=== PATIENT | female | born 1995 | race Caucasian/White ===

== ENCOUNTER 2021-05-25 10:22 | Emergency (ER) | payer BC, SELFPAY ==
[2021-05-25 10:24] VITALS: BP 112/72; PULSE 73; RESP 17; TEMP 36; O2SAT 98; BMI 24.7
--- NOTE | 2021-05-25 10:52 | CT_ITS ---
STUDY: CT BRAIN WITHOUT CONTRAST REASON FOR EXAM: Female, 25 years old. Headaches. RADIATION DOSAGE (If Supplied By Facility): CTDIvol = ( 44.99 ) mGy, DLP = ( 745.49 ) mGycm TECHNIQUE: Transaxial CT imaging of the brain was performed without administration of intravenous contrast material. Individualized dose optimization techniques were used for this CT. COMPARISON: No relevant priors. FINDINGS: Normal soft tissue structures. Normal calvarium. Normal size ventricles and extra-axial spaces for the patient''s age. Normal white matter tracts of the cerebral hemispheres. Normal basal ganglia and thalami. Normal brainstem. Normal cerebellum. There is no intracranial hemorrhage. There are no findings of an acute ischemic infarction. Normal visualized paranasal sinuses. CT/Brain/Head without Contrast IMPRESSION: Normal unenhanced CT scan of the brain. Electronically Signed: Nelson Herbert MD at 11:32 EST ,
--- NOTE | 2021-05-25 10:54 | EX.ED.VIS.HA ---
HPI History of Present Illness Chief Complaint: Headache Narrative Narrative: 25-year-old female presenting with headache. She states that this started yesterday. She states she does not have a history of diagnosed migraines but does state that she believes she has migraines. She has never had to go to a physician for her headache before. Patient reports nausea, photophobia, phonophobia, the association of pressure behind her eyes. She denies a acute onset headache. He does not have dizziness or lightheadedness. No visual complaints. No fever, chills, neck pain. No history of trauma. Patient states she is not concerned for . PFSH PFSH Medical History no medical history Home Medications NK 05/25/21 [History Last Taken Unknown] Allergy/AdvReac Type Severity Reaction Status Date / Time ciprofloxacin [From Cipro] AdvReac Nausea Verified 05/25/21 10:24 Surgical History no surgical history Social History Smoking Status: Never smoker ROS ROS ED Constitutional Constitutional ED: Denies chills, fever(s) or subjective Eyes Eyes: Reports other Details: Photophobia ; Denies blurry vision or diplopia ENT ENT ED: Reports other Details: Phonophobia ; Denies rhinorrhea or sore throat Cardiovascular Cardiovascular: Denies chest pain or palpitations Respiratory/Chest Respiratory/Chest: Denies cough or dyspnea Gastrointestinal Gastrointestinal: Reports nausea; Denies abdominal pain, diarrhea or vomiting Genitourinary Genitourinary ED: Denies dysuria or hematuria Musculoskeletal Musculoskeletal: Denies arthralgias or myalgias Integumentary Denies Abrasions or rash Neurologic Neurologic: Reports headache(s); Denies paresthesias or weakness EXAM Physical Exam Const Vital Signs: 05/25/21 10:24 05/25/21 12:24 Temperature 96.8 F L Temperature Source Temporal Pulse Rate 73 60 Respiratory Rate 17 16 Blood Pressure 112/72 98/57 L Blood Pressure Mean 85 70 Pulse Ox 98 97 Oxygen Delivery Method Room Air Room Air Positive well nourished General Appearance ED: NAD; Negative for pallor HEENT Reports normocephalic, TM's clear and moist mucous membranes atraumatic Tympanic Membrane ED: Yes TM's clear Eyes PERRL and EOMs intact bilaterally Neck no lymphadenopathy, supple and no meningeal signs Resp normal respiratory effort and clear to auscultation bilaterally Cardio regular rate and regular rhythm Neuro oriented x3, CN's II-XII intact bilaterally and no sensory deficits noted Sensorium / Orientation: awake and alert Speech: speech normal Gait (Neuro): normal gait Motor Exam: strength 5/5 throughout Psych mental status grossly normal Skin General Skin Exam: Negative for jaundice or pallor Lesions: no lesions Rashes: no rashes MDM MDM MDM Narrative Medical decision making narrative: Patient presenting with symptoms of migraine. Her neurologic exam is normal. Patient was given Reglan, Benadryl and a CT of the head was obtained because she is not had any imaging nor has she had a headache this bad before. CT of the brain is normal. Patient was given Toradol after this and on reevaluation at 1230 she is pain-free and wants to be discharged home. I counseled her to follow-up with her primary care provider on outpatient basis. She can return precautions. Impression: 1. Headache Radiography Diagnostic Testing: Clinical Impression(s) from Imaging Studies Brain CT 05/25/21 10:52 IMPRESSION: Normal unenhanced CT scan of the brain. Electronically Signed: Nelson Herbert MD at 11:32 EST , Discharge Plan Triage Chief Complaint: Headache ED Provider: Sergio Mayfield Dx/Rx/DC Orders Instructions: ED Headache Unspecified Prescriptions: No Action NK RF: 0 Primary Care Provider: Care Physician,No Primary Referrals: Care Physician,No Primary [Primary Care Provider] - Disposition Disposition: Home, Self Care
[2021-05-25] MEDS: DiphenhydrAMINE 50 MG/ML Syringe 25 MG IV (11:09)
[2021-05-25] MEDS: Metoclopramide 10 MG/2 ML Vial IV (11:09)
[2021-05-25] MEDS: Ketorolac 15 MG/ML Vial IV (11:52)
[2021-05-25 12:24] VITALS: BP 98/57; PULSE 60; RESP 16; O2SAT 97
== END 2021-05-25 12:53 | disposition home or self-care (01) ==
PROVIDERS: Emergency Provider Student in an Organized Health Care Education/Training Program; Visit Provider Student in an Organized Health Care Education/Training Program
DX: R51.9 Headache, unspecified (principal)
CPT/HCPCS: 70450; 96361; 96374; 96375; 99284; J7040; A4216

== ENCOUNTER 2023-04-14 02:56 | Emergency (ER) | payer OTHER, SELFPAY ==
[2023-04-14 02:57] VITALS: BP 114/66; PULSE 112; RESP 17; TEMP 36.8; O2SAT 99; BMI 25.7
--- OUTSIDE RECORDS SUMMARY | 2023-04-14 03:28 | XMS RPT_ITS | CCD ---
Author Name Unknown Address [address] [place] [address] Organization [facility] Care Team Providers Care Fiberglass Quality Technician Name Role Phone PHYSICIAN, NONE Primary Care Physician Unavailab DIEGO Joshi MD Attending Unavailable PHYSICIAN, NONE Primary Care Unavailable JENNIFER FOLEY Referring Unavailable CONCHA BALDWIN Primary Care Unavailable LILY DIAMOND Admitting Unavailable Presley Harris Unavailable Panda DIRECTOR IT.Concha ZAMORA Primary Care Provider CONCHA BALDWIN Primary Care Unavailable JAKE FOY Attending Unavailable FRIEDA GAMING Referring Unavailable CONCHA BALDWIN Primary Care Unavailable Allergies Allergy Classification Reported Allergen(s) Allergy Type Date of Onset Reaction(s) Facility (7 sources) Ciprofloxacin; Translations: [CIPROFLOXACIN] Drug Allergy 02-05-2016 Vomiting [facility] Other [facility] Medications Current Medications Medication Drug Class(es) Dates Sig (Normalized) Sig (Original) naproxen 500 mg oral tablet (3 sources) Nonsteroidal Anti-inflammatory Drug Start: 12-02-2022 End: 12-16-2022 take 1 tablet by mouth every twelve hours as needed naproxen (NAPROSYN) 500 mg tablet Take 1 tablet by mouth twice daily as needed for pain for up to 14 days. Take with food. 28 tablet 0 12/02/2022 12/16/2022 Active Completed/Discontinued Medications Medication Drug Class(es) Dates Sig (Normalized) Sig (Original) omeprazole 20 mg delayed release oral capsule (4 sources) Proton Pump Inhibitor Start: 06-16-2019 take 1 capsule by mouth once daily omeprazole (PRILOSEC) 20 mg capsule Indications: Right-sided chest pain Take 1 capsule by mouth once daily. 30 capsule 2 06/16/2019 Active Problems Problem Classification Problem Date Documented Da te Episodic/Chronic Abdominal pain (2 sources) Right lower quadrant pain; Translations: [Right lower quadrant pain] Onset: 12-02-2022 12-20-2022 Episodic Other screening for suspected conditions (not mental disorders or infectious disease) (1 source) Cancer cervix screening status; Translations: [Encounter for screening for malignant neoplasm of cervix] 12-20-2022 Episodic Ovarian cyst (1 source) Unspecified ovarian cyst, right side; Translations: [Cyst of right ovary] Onset: 12-02-2022 Episodic Results Test Name Value Interpretation Reference Range Facil ity Vital Signs Date Time Vital Sign Value Performing Clinician Faci lity 12-20-2022 10:20-0400 Body weight 63.59 kg aJke Foy MD Work Phone: [facility] 12-20-2022 10:20-0400 Diastolic blood pressure 66 mm[Hg] Jake Foy MD Work Phone: [facility] 12-20-2022 10:20-0400 Systolic blood pressure 118 mm[Hg] Jake Foy MD Work Phone: [facility] Encounters Encounter Date Encounter Type Care Provider Facility Start: 12-20-2022 End: 12-20-2022 ambulatory JAKE FOY Facility:[facility] Start: 12-20-2022 End: 12-20-2022 Patient encounter procedure Jake Foy MD Work Phone: Obstetrics/Gynecology Procedures Date Procedure Procedure Detail Performing Clinician Oral contraceptive prescribed Oral contraceptive prescribed Tyrone Rodrigez MD Work Phone: Structure of wisdom tooth (body structure) DIEGO RAHMAN MD Plan of Treatment Date Care Activity Detail Author Start: 12-13-2022 Influenza vaccination INFLUENZA (#1) [facility] Start: 04-14-2022 DEPRESSION ASSESSMENT DEPRESSION ASS ESSMENT [facility] Start: 08-17-2021 PAP TESTING PAP TESTING [facility] Start: 01-09-2021 Urine microalbumin profile DTAP,TDAP,TD (7 - Td or Tdap) [facility] Start: 2014 HEPATITIS C SCREENING HEPATITIS C SC REENING [facility] Start: 2014 HIV SCREENING HIV SCREENING [facility] Start: 2010 PEDS TO ADULT TRANSI TION ANNUAL ASSESSMENT PEDS TO ADULT TRANSITION ANNUAL ASSESSMENT [facility] Start: 2008 PEDS TO ADULT TRANSI TION INITIAL DISCUSSION PEDS TO ADULT TRANSITION INITIAL DISCUSSION [facility] Start: 06-20-1997 COVID-19 VACCINE (#1) COVID-19 VACCI NE (#1) [facility] PAP TEST PAP TEST Lab [facility] Cervical cancer screening Ordered: 12/20/2022 [facility] Work Phone: Immunizations Immunization Date Immunization Notes Care Provider Fa cility 02-02-2015 influenza virus vacc ine, unspecified formulation Tyrone Rodrigez MD Work Phone: [facility] 03-17-2013 influenza virus vacc ine, unspecified formulation Tyrone Rodrigez MD Work Phone: [facility] 07-31-2012 human papilloma viru s vaccine, quadrivalent Tyrone Rodrigez MD Work Phone: [facility] 07-31-2012 varicella virus vaccine Joey Rodrigez MD Work Phone: [facility] 08-27-2011 hepatitis A vaccine, unspecified formulation Tyrone Rodrigez MD Work Phone: [facility] 08-27-2011 hepatitis B vaccine, pediatric or pediatric/adolescent dosage Tyrone Rodrigez MD Work Phone: [facility] 08-27-2011 human papilloma viru s vaccine, quadrivalent Tyrone Rodrigez MD Work Phone: [facility] 01-09-2011 hepatitis A vaccine, unspecified formulation Tyrone Rodrigez MD Work Phone: [facility] 01-09-2011 human papilloma viru s vaccine, quadrivalent Tyrone Rodrigez MD Work Phone: [facility] 01-09-2011 influenza virus vacc ine, unspecified formulation Tyrone Rodrigez MD Work Phone: [facility] 01-09-2011 Meningococcal, MCV4, unspecified conjugate formulation(groups A, C, Y and W-135) Tyrone Rodrigez MD Work Phone: [facility] 01-09-2011 tetanus toxoid, redu lv diphtheria toxoid, and acellular pertussis vaccine, adsorbed Tyrone Rodrigez MD Work Phone: [facility] 03-31-2009 novel influenza-H1N1 -09, all formulations Tyrone Rodrigez MD Work Phone: [facility] 05-20-2002 diphtheria, tetanus toxoids and acellular pertussis vaccine Tyrone Rodrigez MD Work Phone: [facility] 08-20-2001 measles, mumps and rubella virus vaccine Tyrone Rodrigez MD Work Phone: [facility] 08-20-2001 poliovirus vaccine, inactivated Tyrone Rodrigez MD Work Phone: [facility] 04-10-1998 diphtheria, tetanus toxoids and acellular pertussis vaccine Tyrone Rodrigez MD Work Phone: [facility] 01-11-1998 measles, mumps and rubella virus vaccine Tyrone Rodrigez MD Work Phone: [facility] 06-21-1997 diphtheria, tetanus toxoids and acellular pertussis vaccine Tyrone Rodrigez MD Work Phone: [facility] 06-21-1997 hepatitis B vaccine, pediatric or pediatric/adolescent dosage Tyrone Rodrigez MD Work Phone: [facility] 04-26-1997 diphtheria, tetanus toxoids and acellular pertussis vaccine Tyrone Rodrigez MD Work Phone: [facility] 04-26-1997 poliovirus vaccine, inactivated Tyrone Rodrigez MD Work Phone: [facility] 02-22-1997 diphtheria, tetanus toxoids and acellular pertussis vaccine Tyrone Rodrigez MD Work Phone: [facility] 02-22-1997 poliovirus vaccine, inactivated Tyrone Rodrigez MD Work Phone: [facility] 01-19-1997 hepatitis B vaccine, pediatric or pediatric/adolescent dosage Tyrone Rodrigez MD Work Phone: [facility] Payers Date Payer Category Payer Unknown [id number] 2022 Unknown [employer] PPO OOS [id number] 2022-Present [phone] [address] [place] [address] PPO [id number] 2016 Unknown [id number] 1995 Unknown [id number] Social History Date Type Detail Facility Start: 12-19-2021 End: 12-20-2022 Tobacco smoking status Never smoked tobacco (finding) [facility] Sex Assigned At Sex [facility] Start: 12-05-2022 End: 12-20-2022 Alcohol intake Current drinker of alcohol (finding) [facility] Start: 06-16-2019 End: 12-03-2022 History of Social function [facility] Start: 06-16-2019 End: 12-03-2022 Alcohol Use Disorder Identification Test - Consumption [AUDIT-C] [facility] How often to you hav e a drink containing alcohol? Monthly or less [facility] Average Number of Drinks Not on file [facility] Start: 06-16-2019 Alcohol Comment social [facility] Start: 1995 Sex Assigned At Not on file [facility] Start: 12-20-2022 Tobacco use and exposure Smokeless tobacco non-user [facility] Start: 12-20-2022 Tobacco Comment Never smoked; Never used smokeless; Tobacco reviewed with patient 02/02/2015 [facility] Clinical Notes 12-05-2022 to 12-20-2022 Jake Foy MD - 12/20/2022 10:46 AM Kandi Walden MA - 12/06/2022 10:48 AM Tyrone Guaman MD - 12/05/2022 12:57 PM EDT Note Date & Type Note Facility 12-20-2022 Note HNO ID: [id number] Author: Jake Foy MD Service: ? Author Type: Physician Type: Progress Notes Filed: 12/20/2022 11:11 AM Note Text: Valeri Whittaker is a 26 year old female who presents for follow up of her right lower quadrant pain. HPI: She was seen in the ER on 12/02 for RLQP. Unknown etiology, other than possible rupture of an ovarian cyst or mid-ovulation pain. The cyst mentioned US (1.9 cm) would not cause a clinical symptom. OB History No obstetric history on file. Information Management Manager History LMP: 11/14/2022 (Exact Date), Having periods Age at Menarche: Age at First : Age at Menopause: Information Management Manager History Comments: Sexual Activity: Yes; No partner data on record Contraception: No contraception data on record PAST MEDICAL HISTORY Diagnosis Date Acute otitis externa right Acute sinusitis Allergic rhinitis Contusion of face, scalp and neck Contusion of face, scalp and neck, excluding eye(s) Excessive cerumen in ear canal Exercise-induced asthma Infectious mononucleosis Leukocytosis Oral contraceptive prescribed Shoulder pain, right No past surgical history on file. FAMILY HISTORY Problem Relation Age of Onset Asthma Maternal Grandmother Hypertension Maternal Grandmother other (Diabetes mellitus) Maternal Grandmother other (Osteoarthritis) Paternal Grandmother other (Osteoarthritis) Paternal Grandfather other (mentally handicap) Brother half brother other (aspergers) Other half brother other (thyroid issue) Other Depression Mother Heart Father A fib Social History Tobacco Use Smoking status: Never Smokeless tobacco: Never Tobacco comments: Never smoked; Never used smokeless; Tobacco reviewed with patient 02/02/2015 Substance Use Topics Alcohol use: Yes Comment: social Drug use: No Current Outpatient Medications Medication Sig omeprazole (PRILOSEC) 20 mg capsule Take 1 capsule by mouth once daily. No current facility-administered medications for this visit. Allergies As of Date: 12/20/2022 Allergen Noted Reaction CIPROFLOXACIN 02/05/2016 Vomiting Fully Assessed 12/20/2022 REVIEW OF SYSTEMS Abdomen: No bloating, early satiety, indigestion, or increased flatulence. No abdominal pain, nausea, vomiting, diarrhea, or constipation. Bladder: No dysuria, gross hematuria, urinary frequency, urinary urgency, or incontinence. Breast: No breast lumps, nipple d/c, overlying skin changes, redness or skin retraction. Expanded ROS: N/A Allergies and current medication updated:Yes EXAM: BP 118/66 Wt 140 lb 3.2 oz (63.6kg) LMP 11/14/2022 GENERAL: pleasant, female in no apparent distress HEENT: Normocephalic, atraumatic, mucus membranes moist, and no lesions NECK: Supple, full range of motion, no adenopathy, and thyroid normal DERMATOLOGY: Normal, without lesions, non-icteric, and non-hirsute CHEST: Normal inspiratory effort ABDOMEN: soft, non-tender, and no masses PELVIC: external genitalia normal, normal Bartholin's glands, urethra, High Rolls's glands, no vulvar lesions, no cervical lesions, good vaginal support, physiologic discharge present, normal appearing perineal body and perianal region T/V US in office: Normal uterus and ovaries bilaterally, no free pelvic fluid NEURO: alert and oriented x3,exam grossly non-focal EXTREMITIES: normal ASSESSMENT AND PLAN: Encounter Diagnosis ICD-10-CM 1. Cervical cancer screening Z12.4 PAP TEST 2. Right lower quadrant pain R10.31 1- Pt is reassured that there is no package sealer pathology. 2- Pap smear done 3- Declines Control since considering . I have spent 30 minutes with the patient during history taking, exam, review of chart, documentation in the chart, education, counselling and medical decision making. Jake Foy MD [facility] 12-20-2022 History of Presen t illness Narrative Valeri Whittaker is a 26 year old female who presents for follow up of her right lower quadrant pain. HPI: She was seen in the ER on 12/02 for RLQP. Unknown etiology, other than possible rupture of an ovarian cyst or mid-ovulation pain. The cyst mentioned US (1.9 cm) would not cause a clinical symptom. OB History No obstetric history on file. Information Management Manager History LMP: 11/14/2022 (Exact Date), Having periods Age at Menarche: Age at First : Age at Menopause: Information Management Manager History Comments: Sexual Activity: Yes; No partner data on record Contraception: No contraception data on record PAST MEDICAL HISTORY Diagnosis Date Acute otitis externa right Acute sinusitis Allergic rhinitis Contusion of face, scalp and neck Contusion of face, scalp and neck, excluding eye(s) Excessive cerumen in ear canal Exercise-induced asthma Infectious mononucleosis Leukocytosis Oral contraceptive prescribed Shoulder pain, right No past surgical history on file. FAMILY HISTORY Problem Relation Age of Onset Asthma Maternal Grandmother Hypertension Maternal Grandmother other (Diabetes mellitus) Maternal Grandmother other (Osteoarthritis) Paternal Grandmother other (Osteoarthritis) Paternal Grandfather other (mentally handicap) Brother half brother other (aspergers) Other half brother other (thyroid issue) Other Depression Mother Heart Father A fib Social History Tobacco Use Smoking status: Never Smokeless tobacco: Never Tobacco comments: Never smoked; Never used smokeless; Tobacco reviewed with patient 02/02/2015 Substance Use Topics Alcohol use: Yes Comment: social Drug use: No Current Outpatient Medications Medication Sig omeprazole (PRILOSEC) 20 mg capsule Take 1 capsule by mouth once daily. No current facility-administered medications for this visit. Allergies As of Date: 12/20/2022 Allergen Noted Reaction CIPROFLOXACIN 02/05/2016 Vomiting Fully Assessed 12/20/2022 REVIEW OF SYSTEMS Abdomen: No bloating, early satiety, indigestion, or increased flatulence. No abdominal pain, nausea, vomiting, diarrhea, or constipation. Bladder: No dysuria, gross hematuria, urinary frequency, urinary urgency, or incontinence. Breast: No breast lumps, nipple d/c, overlying skin changes, redness or skin retraction. Expanded ROS: N/A Allergies and current medication updated:Yes EXAM: BP 118/66 Wt 140 lb 3.2 oz (63.6kg) LMP 11/14/2022 GENERAL: pleasant, female in no apparent distress HEENT: Normocephalic, atraumatic, mucus membranes moist, and no lesions NECK: Supple, full range of motion, no adenopathy, and thyroid normal DERMATOLOGY: Normal, without lesions, non-icteric, and non-hirsute CHEST: Normal inspiratory effort ABDOMEN: soft, non-tender, and no masses PELVIC: external genitalia normal, normal Bartholin's glands, urethra, High Rolls's glands, no vulvar lesions, no cervical lesions, good vaginal support, physiologic discharge present, normal appearing perineal body and perianal region T/V US in office: Normal uterus and ovaries bilaterally, no free pelvic fluid NEURO: alert and oriented x3,exam grossly non-focal EXTREMITIES: normal ASSESSMENT AND PLAN: Encounter Diagnosis ICD-10-CM 1. Cervical cancer screening Z12.4 PAP TEST 2. Right lower quadrant pain R10.31 1- Pt is reassured that there is no package sealer pathology. 2- Pap smear done 3- Declines Control since considering . I have spent 30 minutes with the patient during history taking, exam, review of chart, documentation in the chart, education, counselling and medical decision making. Jake Foy MD documented in this encounter [facility] 12-06-2022 Note Patient Outreach (AG FAMPLE) DIYA WHITTAKERWKYLE Juárez ([id number]) 1995 F Date Time Provider Department 12/06/22 CONCHA BALDWIN During your visit today, we recorded the following information about you: Kandi Zheng MA 12/06/2022 10:51 AM Signed ED Follow Up: Patient discharged from [facility] ED on 12/02/22. 1. How are you feeling since your ED visit? N/A Have your symptoms improved or resolved? Not applicable 2. Were you prescribed any medications while in the ED or advised to stop any medication? Not applicable - If yes, were you able to fill your prescriptions? Not applicable -if stopped medication, what was the medication? N/A 3. Were you advised to schedule a follow up appointment with your provider? Not applicable - If no, Do you feel like you need an appointment scheduled? Not applicable - If yes, Do you need this scheduled now or has this already been scheduled? Not applicable 4. Were you able to contact the office or it consultant provider prior to your ED visit? Not applicable 5. Is there anything else I can do for you today? Not applicable Kandi Zheng MA Allergies As of Date: 12/06/2022 Noted Allergy Reaction CIPROFLOXACIN 02/05/2016 11 - Vomiting Comments: achy Date Reviewed: 12/05/2022 Reviewed by: Nikky Summers, RN - Fully Assessed Reason for Visit: ED Outreach [Other] Cmt: [facility] 12/02/22 Prescriptions as of 12/06/2022 - ondansetron orally disintegrating (ZOFRAN ODT) 4 mg disintegrating tablet Take 1 tablet by mouth every 6 hours as needed for nausea/vomiting for up to 7 days. - naproxen (NAPROSYN) 500 mg tablet Take 1 tablet by mouth twice daily as needed for pain for up to 14 days. Take with food. - omeprazole (PRILOSEC) 20 mg capsule Take 1 capsule by mouth once daily. Problem List As Of Date 12/06/2022 Noted Resolved Oral contraceptive prescribed [Z30.011] Encounter Status:Closed by KANDI ZHENG on 12/06/22 [facility] 12-06-2022 Note HNO ID: [id number] Author: Kandi Zheng MA Service: ? Author Type: Community Marketing Manager Type: Progress Notes Filed: 12/06/2022 10:51 AM Note Text: ED Follow Up: Patient discharged from [facility] ED on 12/02/22. 1. How are you feeling since your ED visit? N/A Have your symptoms improved or resolved? Not applicable 2. Were you prescribed any medications while in the ED or advised to stop any medication? Not applicable - If yes, were you able to fill your prescriptions? Not applicable -if stopped medication, what was the medication? N/A 3. Were you advised to schedule a follow up appointment with your provider? Not applicable - If no, Do you feel like you need an appointment scheduled? Not applicable - If yes, Do you need this scheduled now or has this already been scheduled? Not applicable 4. Were you able to contact the office or it consultant provider prior to your ED visit? Not applicable 5. Is there anything else I can do for you today? Not applicable Kandi Zheng MA [facility] 12-06-2022 History of Presen t illness Narrative ED Follow Up: Patient discharged from [facility] ED on 12/02/22. 1. How are you feeling since your ED visit? N/A Have your symptoms improved or resolved? Not applicable 2. Were you prescribed any medications while in the ED or advised to stop any medication? Not applicable - If yes, were you able to fill your prescriptions? Not applicable -if stopped medication, what was the medication? N/A 3. Were you advised to schedule a follow up appointment with your provider? Not applicable - If no, Do you feel like you need an appointment scheduled? Not applicable - If yes, Do you need this scheduled now or has this already been scheduled? Not applicable 4. Were you able to contact the office or it consultant provider prior to your ED visit? Not applicable 5. Is there anything else I can do for you today? Not applicable Kandi Zheng MA documented in this encounter [facility] 12-05-2022 Note HNO ID: [id number] Author: Tyrone Rodrigez MD Service: ? Author Type: Physician Type: Progress Notes Filed: 12/05/2022 1:01 PM Note Text: Virtualist Progress Note Triage Call I have communicated my name and active licensure. The patient's identity and physical location were verified at the time of this visit. Either the patient or their legal enrollment representative has been informed of the risks and benefits of -- and alternatives to -- treatment through a remote evaluation and consents to proceed with the evaluation remotely. Triage source: Triage Call (Nurse Roll Or Tape Edge Machine Operator, Medical Care at Home - NOC Triage, REPLACED BY [facility] Triage, [facility] Phone Triage) Was patient downgraded (i.e. disposition other than go to the ED was advised)? Yes Mode of contact: Audio only History/Physical Exam: She is a 26 yo who was in the ER for RLQ pain. Workup was negative except for an ovarian cyst. She was better but this am had some recurrence of pain associated hematuria and symptoms like her usual UTIs. She has no fever and pain is not severe. I downgraded to visit within 24 hours for probable UTI Nurse Triage Disposition (If call is from [facility], [facility] nurse triage, or an Express Care, the disposition is Go to ED Now ): See provider within 4 hours Virtualist Recommended Disposition: See Provider within 24 hours Signed in as Primary Virtualist, Secondary Virtualist, or [facility] Telehealth provider: Secondary [facility] 12-05-2022 History of Presen t illness Narrative Virtualist Progress Note Triage Call I have communicated my name and active licensure. The patient's identity and physical location were verified at the time of this visit. Either the patient or their legal enrollment representative has been informed of the risks and benefits of -- and alternatives to -- treatment through a remote evaluation and consents to proceed with the evaluation remotely. Triage source: Triage Call (Nurse Roll Or Tape Edge Machine Operator, Medical Care at Home - [facility] Triage, REPLACED BY [facility] Triage, [facility] Phone Triage) Was patient downgraded (i.e. disposition other than go to the ED was advised)? Yes Mode of contact: Audio only History/Physical Exam: She is a 26 yo who was in the ER for RLQ pain. Workup was negative except for an ovarian cyst. She was better but this am had some recurrence of pain associated hematuria and symptoms like her usual UTIs. She has no fever and pain is not severe. I downgraded to visit within 24 hours for probable UTI Nurse Triage Disposition (If call is from [facility], [facility] nurse triage, or an Express Care, the disposition is Go to ED Now ): See provider within 4 hours Virtualist Recommended Disposition: See Provider within 24 hours Signed in as Primary Virtualist, Secondary Virtualist, or [facility] Telehealth provider: Secondary documented in this encounter [facility] 12-05-2022 Miscellaneous Notes Formattin g of this note might be different from the original. Reason for call: Blood in urine, burning with urination Spoke to virtualist it consultant, Dr. Rodrigez who states that patient should be seen in office today or tomorrow, may go to walk in clinic if no appointments available. Conferenced to appointment center for assistance with scheduling, no appointments available. [facility]. Reason for Disposition [1] MILD-MODERATE pain AND [2] constant AND [3] present > 2 hours Answer Assessment - Initial Assessment Questions 1. COLOR of URINE: Brownish 2. ONSET: About 2 hours ago 3. EPISODES: 3 episodes of hematuria 4. PAIN with URINATION: Discomfort with urination- 8/10 5. FEVER: Denies 6. ASSOCIATED SYMPTOMS: Urinary frequency 7. OTHER SYMPTOMS: Pelvic pain 8. : Denies Answer Assessment - Initial Assessment Questions 1. LOCATION: Pelvis middle, below belly button. 2. RADIATION: Denies 3. ONSET: About 2 hours ago 4. SUDDEN: Present upon waking. 5. PATTERN Constant 6. SEVERITY: Was 4/10 upon waking. Took Naproxen and now 1/10 7. RECURRENT SYMPTOM: Has had similar symptoms with previous UTIs 8. CAUSE: Believes she might have a UTI. 9. RELIEVING/AGGRAVATING FACTORS: Naproxen and hot bath make pain better. Protocols used: Urine - Blood In-ADULT-, Pelvic Pain - [id number] documented in this encounter [facility] Evaluation + Plan note Future Appointments Appointment Date:01/16/2022 11:30:00 AM Scheduled Provider:DIEGO RAHMAN MD Location:[facility] Appointment Type: OV Annual Exam [facility] Diagnosis Cervical cancer screening- Primary Screening for malignant neoplasm of the cervix Right lower quadrant pain Abdominal pain, right lower quadrant [facility] Narrative No data available for this section [facility] Hospital Discharge instructions No data available for this section [facility] Progress note No data available for this section [facility] Summary Purpose Family History No Family History Records FoundNo Family History Records FoundNo Family History Records FoundNo Family History Records FoundNo Family History Records Found Advance Directives No Advanced Directives Records FoundNo Advanced Directives Records FoundNo Advanced Directives Records FoundNo Advanced Directives Records FoundNo Advanced Directives Records Found Additional Source Comments INFORMATION SOURCE (unrecogn ized section and content) DATE CREATED AUTHOR AUTHOR'S ORGANIZ ATION 01/11/2022 [facility] DATE CREATED AUTHOR AUTHOR'S ORGANIZ ATION 12/03/2022 [facility] DATE CREATED AUTHOR AUTHOR'S ORGANIZ ATION 12/07/2022 [facility] DATE CREATED AUTHOR AUTHOR'S ORGANIZ ATION 12/31/2022 [facility] Source Comments (unrecognize d section and content) In the event this informatio n is protected by the Federal Confidentiality of Alcohol and Drug Abuse Patient Records regulations: The Federal rules restrict any use of the information to criminally investigate or prosecute any alcohol or drug abuse patient.[facility] the event this information is protected by the Federal Confidentiality of Alcohol and Drug Abuse Patient Records regulations: The Federal rules restrict any use of the information to criminally investigate or prosecute any alcohol or drug abuse patient.[facility] the event this information is protected by the Federal Confidentiality of Alcohol and Drug Abuse Patient Records regulations: The Federal rules restrict any use of the information to criminally investigate or prosecute any alcohol or drug abuse patient.[facility] the event this information is protected by the Federal Confidentiality of Alcohol and Drug Abuse Patient Records regulations: The Federal rules restrict any use of the information to criminally investigate or prosecute any alcohol or drug abuse patient.[facility] Reason for Visit (unrecogniz ed section and content) Reason Comments Blood In Urine Pelvic Pain Reason Onset Date Comments ED Outreach 12/06/2022 [place] [facility] 3 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 This clinical summary was aggregated from multiple sources. Caution should be exercised in using it in the provision of clinical care. This summary normalizes information from multiple sources, and as a consequence, information in this document may materially change the coding, format and clinical context of patient data. In addition, data may be omitted in some cases. CLINICAL DECISIONS SHOULD BE BASED ON THE PRIMARY CLINICAL RECORDS. [facility] [employer] [facility]. provides no warranty or guarantee of the accuracy or completeness of information in this document.
[2023-04-14 03:50] LABS: Mucous, Urine 0 SEEN /hpf (<or=2+); Red Blood Cells-Urine 0 SEEN /hpf (0-5)
[2023-04-14 03:54] LABS: Color, Urine Yellow (Yellow); Glucose, Dipstick Normal (Normal); Leukocyte Esterase-Dipstick 25 /ul (Negative); Nitrite-Dipstick Negative (Negative); Occult Blood-Urine 50 /ul (Negative); Protein-Dipstick 15 mg/dl (Negative); Urine Bilirubin Dipstick Negative (Negative); Urine Clarity Clear (Clear); Urine Urobilinogen Normal (Normal)
[2023-04-14 03:56] LABS: Internal QC Validated? YES +Cl - CLEAR BKGD; Pregnancy, Urine Negative Negative
[2023-04-14 03:57] LABS: Ketone-Dipstick 150 mg/dl (Negative)
[2023-04-14 03:59] LABS: Absolute Neutrophil Count 15.7 X10^3/uL (2.0-7.7); Basophil# 0.03 X10^3/uL; Basophil% 0.2 % (0-1); Hematocrit 36.8 % (37-47); Hemoglobin 11.9 g/dL (12.0-15.0); Lymphocyte % 5.1 % (19-41); Mean Corp Hgb Conc 32.3 g/dL (32-36); Mean Corpuscular Hgb 28.6 pg (27.0-32.0); Mean Corpuscular Volume 88.5 fL (81-99); Mean Platelet Vol. 10.7 fl (6.2-12.0); Monocyte# 0.88 X10^3/uL; NRBC Flagged by Analyzer 0 % (0-5); Neutrophil # 15.65 X10^3/uL (2.7-7.7); Neutrophil % 89.2 % (47-70); Platelet Count 320 K/mm3 (150-450); RBC Distribution Width CV 12.7 % (11.6-14.6); RBC Distribution Width SD 41.2 fl (35.1-43.9); Red Blood Count 4.16 M/mm3 (4.2-5.4); White Blood Count 17.5 K/mm3 (4.4-11.0)
[2023-04-14 04:23] LABS: Bacteria RARE /hpf (None Seen); Squamous Epithelial Cells - UA 0-5 SEEN /hpf (5-10); White Blood Cells 0-5 SEEN /hpf (0-5)
[2023-04-14 04:32] LABS: ALB/GLOB Ratio 1.1 RATIO (0.9-2.4); AST(SGOT) 17 U/L (15-37); Alanine Aminotransfer ALT/SGPT 21 U/L (13-56); Albumin, Serum 3.6 g/dL (3.2-5.0); Alkaline Phosphatase 48 U/L (45-117); Anion Gap 8 (5-15); BUN 8 mg/dL (7-18); BUN/Creat Ratio 11.8 RATIO (10-20); Calcium,Total 8.7 mg/dL (8.5-10.1); Chloride 106 mmol/L (98-107); Creatinine, Serum 0.68 mg/dL (0.55-1.02); EST Glomerular Filtration Rate 112 mL/min (>60); Est Glom Filt Rate - Afr Amer 135 mL/min (>60); Estimated Creatinine Clearance 103.71 ml/min; Globulin 3.3 g/dL (2.2-4.2); Glucose 115 mg/dL (74-106); Potassium 3.4 mmol/L (3.5-5.1); Protein, Total 6.9 g/dL (6.4-8.2); Sodium Level 138 mmol/L (136-145)
[2023-04-14 04:40] LABS: D-Dimer Quantitative (DVT/PE) 0.31 FEU/ug/m (0.27-0.49)
[2023-04-14 04:56] VITALS: BP 122/62; PULSE 107; RESP 25; TEMP 37.3; O2SAT 98
[2023-04-14] MEDS: dexAMETHasone 10 MG/ML Vial IV (05:10)
[2023-04-14] MEDS: 0.9% Normal Saline (1000mL) 1,000 ML 999 ML IV (05:11)
--- NOTE | 2023-04-14 05:28 | RAD_ITS ---
INDICATION: cough EXAMINATION/TECHNIQUE: X-RAY - XR Chest 2 Views COMPARISON: None. FINDINGS: LINES/DEVICES: None. LUNGS: No pulmonary edema or focal airspace consolidation. No sizable pleural effusion. No pneumothorax detected. MEDIASTINUM AND CARDIOVASCULAR STRUCTURES: Heart size within normal limits. Mediastinal contours unremarkable. BONES AND SOFT TISSUES: No acute findings. RAD/Chest PA and Lateral IMPRESSION: No radiographic evidence of acute cardiopulmonary disease. Electronically Signed: James Peter MD at 6:56 EST ,
[2023-04-14] MEDS: Ketorolac 30 MG/ML Syringe IV (05:45)
--- NOTE | 2023-04-14 06:48 | EX.ED.DYSGE1 ---
HPI History of Present Illness Chief Complaint: General Illness Informant: patient and spouse/S.O. Narrative Narrative: Patient is a 27-year-old female with no significant past medical history. She states that roughly 2 to 3 weeks ago she had COVID. She states she was sick but got completely better and then in the last 1 to 2 days she has had nasal congestion sore throat cough with generalized fatigue and headache. She states that her boyfriend/significant other has been sick for the last 1 to 2 weeks as well. With the return of symptoms she is concern for repeat infection and secondary to this comes in for evaluation PFSH PFS no medical history Home Medications azelastine 137 mcg (0.1 %) nasal spray aerosol 2 spray intranasal BID #30 mL 04/14/23 [Rx Last Taken Unknown] hydrocodone-homatropine 5 mg-1.5 mg/5 mL (5 mL) oral syrup (Hycodan) 5 ml PO 4X/DAY PRN cough 7 days #140 mL 04/14/23 [Rx Last Taken Unknown] prednisone 20 mg tablet 40 mg (2 x 20 mg) PO DAILY 7 days #14 tabs 04/14/23 [Rx Last Taken Unknown] Allergy/AdvReac Type Severity Reaction Status Date / Time ciprofloxacin [From Cipro] AdvReac Nausea Verified 04/14/23 03:04 Surgical History (Updated 04/14/23 @ 03:02 by Bibi Leal) [place] teeth removed Social History Smoking Status: Never smoker ROS ROS ED Constitutional Constitutional ED: Reports chills, fever(s) and subjective Eyes Eyes: Denies change in vision ENT ENT ED: Reports rhinorrhea and sore throat Cardiovascular Cardiovascular: Denies chest pain Respiratory/Chest Respiratory/Chest: Reports cough; Denies dyspnea Gastrointestinal Gastrointestinal: Reports nausea; Denies abdominal pain, diarrhea or vomiting Genitourinary Genitourinary ED: Denies dysuria Musculoskeletal Musculoskeletal: Reports myalgias Integumentary Denies rash Neurologic Neurologic: Reports headache(s) Hematologic/Lymphatic Hematologic/Lymphatic: Denies easy bleeding or easy bruising EXAM Physical Exam Const Vital Signs: 04/14/23 02:57 04/14/23 03:01 04/14/23 04:56 Temperature 98.3 F 99.1 F Temperature Source Temporal Oral Pulse Rate 112 H 107 H Respiratory Rate 17 25 H Respiratory Effort Non-Labored Respiratory Pattern Normal Blood Pressure 114/66 122/62 H Blood Pressure Mean 82 82 Pulse Ox 99 98 Oxygen Delivery Method Room Air Room Air 04/14/23 07:09 Temperature Temperature Source Pulse Rate 72 Respiratory Rate 15 Respiratory Effort Respiratory Pattern Blood Pressure 118/64 Blood Pressure Mean 82 Pulse Ox 98 Oxygen Delivery Method Positive well nourished and well developed General Appearance ED: well developed; Negative for pallor HEENT HEENT Narrative: Nasal mucosa is hyperemic and boggy Bilateral TMs are retracted but show no secondary changes to suggest infection There is cobblestoning the posterior pharynx consistent with sinus drainage without airway edema or compromise No secondary changes to suggest infection in the posterior pharynx Mucous membranes are slightly dry and tacky Eyes PERRL and EOMs intact bilaterally General Eye ED: Negative for scleral icterus Neck supple Neck Narrative: No nuchal rigidity or meningeal signs noted Resp normal respiratory effort and clear to auscultation bilaterally Cardio regular rhythm Rate: tachycardic and other Other Details: Tachycardic rate with regular rhythm with no murmurs rubs or gallops Radial and carotid pulses are equal and symmetric GI non-tender, non-distended and no masses GI Narrative: Abdomen is soft nontender nondistended with hyperactive bowel sounds no voluntary guarding or rigidity or pulsatile mass Auscultation: hyperactive bowel sounds Palpation: soft Extremity normal to inspection Extremity Narrative: No asymmetric edema no pitting edema negative Homans' sign bilaterally Neuro oriented x3, CN's II-XII intact bilaterally and no sensory deficits noted Sensorium / Orientation: alert Motor Exam: strength 5/5 throughout Psych mental status grossly normal Skin no rashes or lesions noted Skin Narrative: Skin turgor is slightly increased General Skin Exam: Negative for jaundice or pallor MDM MDM MDM Narrative Medical decision making narrative: Patient presented to the ER afebrile but tachycardic. History and exam is most consistent with viral infection such as COVID versus influenza versus RSV as a cause of her recurrent symptoms. However there is also concern for pneumonia and as she is tachycardic and had a recent COVID potentially DVT/PE. Blood work was obtained and shows elevated white count at 17.5 but otherwise there is no signs of acute kidney injury or electrolyte abnormality and her D-dimer is normal going against a DVT/PE. COVID and influenza swabs are negative and chest x-ray did not show any type of pneumonia. By exam she has mild dehydration with tachycardia and dry mucous membranes but after treatment with IV fluids symptoms resolved and she reported feeling better. At this time she does not have pneumonia she does not have a cardiac dysrhythmia and labs have leukocytosis but otherwise no clinically significant findings indicating this is most likely a recurrent viral infection. She is not having hypoxia or respiratory distress there is no need for admission to the hospital and she is otherwise safe for discharge with symptomatic care History & Record Review Discussion w/independent historian: Patient and Significant other Lab Data Attestation: I reviewed the patient's lab results. Labs: Laboratory Results - last 24 hr 04/14/23 04/14/23 03:37 03:40 WBC 17.5 H RBC 4.16 L Hgb 11.9 L Hct 36.8 L MCV 88.5 MCH 28.6 MCHC 32.3 RDW Std Deviation 41.2 RDW Coeff of Virgilio 12.7 Plt Count 320 MPV 10.7 Immature Gran % (Auto) 0.500 Neut % (Auto) 89.2 H Lymph % (Auto) 5.1 L Mccracken % (Auto) 5.0 Eos % (Auto) 0.0 Baso % (Auto) 0.2 Absolute Neuts (auto) 15.7 H Absolute Lymphs (auto) 0.90 Nucleated RBC % 0 D-Dimer Quant (PE/DVT) 0.31 Sodium 138 Potassium 3.4 L Chloride 106 Carbon Dioxide 24.0 Anion Gap 8 BUN 8 Creatinine 0.68 Estim Creat Clear Calc 103.71 Est GFR (MDRD) Af Amer 135 Est GFR (MDRD) Non-Af 112 BUN/Creatinine Ratio 11.8 Glucose 115 H Calcium 8.7 Total Bilirubin 0.40 AST 17 ALT 21 Alkaline Phosphatase 48 Total Protein 6.9 Albumin 3.6 Globulin 3.3 Albumin/Globulin Ratio 1.1 Urine Color Yellow Urine Clarity Clear Urine pH 6.0 Ur Specific [place] 1.020 Urine Protein 15 H Urine Glucose (UA) Normal Urine Ketones 150 A* Urine Occult Blood 50 H Urine Nitrite Negative Urine Bilirubin Negative Urine Urobilinogen Normal Ur Leukocyte Esterase 25 H Urine RBC 0 SEEN Urine WBC 0-5 SEEN Ur Squamous Epith Cells 0-5 SEEN Urine Bacteria RARE Urine Mucus 0 SEEN Urine Test Negative Radiography Diagnostic Testing: Clinical Impression(s) from Imaging Studies Chest X-Ray 04/14/23 05:28 IMPRESSION: No radiographic evidence of acute cardiopulmonary disease. Electronically Signed: James Peter MD at 6:56 EST , 2 view chest x-ray as interpreted by the emergency medicine physician reveals no acute infiltrate pneumothorax or pleural effusion Discharge Plan Triage Chief Complaint: General Illness ED Provider: Milton Dee Dx/Rx/DC Orders Clinical Impression: Viral upper respiratory tract infection with cough, Dehydration Instructions: ED URI, Viral, No Abx (Adult) Prescriptions: New azelastine 137 mcg (0.1 %) aerosol,spray 2 spray intranasal BID Qty: 30 0RF Rx Instructions: administer into each nostril prednisone 20 mg tablet 40 mg PO DAILY 7 Days Qty: 14 0RF hydrocodone-homatropine [Hycodan] 5-1.5 mg/5 mL (5 mL) syrup 5 ml PO 4X/DAY PRN (Reason: cough) 7 Days Qty: 140 0RF Stand Alone Forms: ED Work / School Excuse Primary Care Provider: Care Physician,No Primary Referrals: Tomi Andres MD [Med Staff - Active Staff] - Care Physician,No Primary [Primary Care Provider] - Disposition Disposition: Home, Self Care Discharge Date/Time: 04/14/23 07:04
[2023-04-14 07:09] VITALS: BP 118/64; PULSE 72; RESP 15; O2SAT 98
== END 2023-04-14 07:04 | disposition home or self-care (01) ==
PROVIDERS: Emergency Provider Emergency Medicine; Visit Provider Emergency Medicine
DX: J06.9 Acute upper respiratory infection, unspecified (principal); E86.0 Dehydration; R05.9 Cough, unspecified
CPT/HCPCS: 71046; 80053; 81001; 81025; 85025; 85379; 87428; 87651; 93005; 96361; 96374; 96375; 99284; J7030; A4216